=== PATIENT | female | born 1975 | race Caucasian/White ===

== ENCOUNTER 2017-04-25 07:58 | Emergency (ER) | payer SELFPAY ==
[2017-04-25 08:04] VITALS: BP 153/99
== END 2017-04-25 10:40 | disposition left against medical advice (07) ==
LOC: ER 07:58
DX: R10.9 Unspecified abdominal pain (principal); Z53.21 Procedure and treatment not carried out due to patient leaving prior to being seen by health care provider; W19.XXXA Unspecified fall, initial encounter; Y93.89 Activity, other specified; Y99.8 Other external cause status; Y92.89 Other specified places as the place of occurrence of the external cause
CPT/HCPCS: 74176